=== PATIENT | female | born 1980 | race Hispanic/Latino ===

== ENCOUNTER 2016-04-24 10:58 | Emergency (ER) | payer OTHER ==
[~2016-04-24] VITALS: Ht 157.5 cm; Wt 68.0 kg
[~2016-04-24 10:58] MED LIST: CYCLOBENZAPRINE10 M1 PO; NAPROSYN500 M1 PO; PERCOCET 5-3251 EACH PO
[2016-04-24 11:08] VITALS: BP 146/73
[2016-04-24] MEDS ORDERED: PERCOCET 10-321 EACH PO (12:54)
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
== END 2016-04-24 13:24 ==
LOC: ERH 10:58
DX: M54.5 Low back pain (principal)

== ENCOUNTER 2017-05-22 11:03 | Emergency (ER) | payer OTHER ==
[~2017-05-22] VITALS: Ht 157.5 cm; Wt 73.5 kg
[~2017-05-22 11:03] MED LIST changes: +LIDOCAINE HCL V15 ML PO; +PERCOCET 10-321 EACH PO; +ROBAXIN500 M1 PO
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
[2017-05-22] MEDS ORDERED: CYCLOBENZAPRINE10 M1 PO (12:59)
[2017-05-22] MEDS ORDERED: PERCOCET 5-3251 EACH PO (12:59)
[2017-05-22 13:01] VITALS: BP 115/81
== END 2017-05-22 13:02 ==
LOC: ERH 11:03
DX: M54.5 Low back pain (principal); M25.562 Pain in left knee